=== PATIENT | female | born 1980 | race Caucasian/White ===

== ENCOUNTER 2016-10-27 18:48 | Emergency (ER) | payer OTHER ==
[~2016-10-27 18:48] MED LIST: ACETAMINOPHEN650 M3 PO; AMOXICILLIN PO; AMOXICILLIN500 M1 PO; BENTYL10 MG DOB; BENTYL10 MG PO; BUSPAR; BUSPAR PO; CLEOCIN PO; COLACE PO; COMPAZINE10 M1 PO; COUMADIN PO; CYMBALTA PO; EC-NAPROSYN500 MG PO; EFFEXOR PO; FLEXERIL10 M1 PO; FLEXERIL10 MG PO; GABAPENTIN300 MG PO; IBUPROFEN PO; KEPPRA500 M2 PO; LOPRESSOR PO; LORTAB 10-5001 EACH PO; LORTAB 5/500 TA1 TA1 PO; LOVENOX80 MG/0.8 INJ; MIRALAX255 GM PO; NEURONTIN PO; NICOTINE P1 PATCH .1 EXT; PERCOCET5/325 PO; PHENERGAN PO; POTASSIUM CHLO10 ME1 PO; PREDNISONE PO; PRENATAL VITAMI1 TA3 PO; PRILOSEC40 MG PO; PROZAC PO; REGLAN10 MG PO; ULTRAM PO; VICODIN 5/1 TAB 5/50 PO; VICODIN 5/500 T1 TAB PO; VOLTAREN50 MG PO
[2016-10-28] MEDS ORDERED: KEPPRA500 MG (11:47)
[2016-10-28] MEDS ORDERED: NEURONTIN (11:48)
== END 2016-10-27 19:26 | disposition home or self-care (01) ==
LOC: CFTX 18:48
DX: J02.9 Acute pharyngitis, unspecified (principal); H66.92 Otitis media, unspecified, left ear; K21.9 Gastro-esophageal reflux disease without esophagitis; F32.9 Major depressive disorder, single episode, unspecified; F41.9 Anxiety disorder, unspecified; Z87.442 Personal history of urinary calculi; F17.210 Nicotine dependence, cigarettes, uncomplicated; Z91.040 Latex allergy status
CPT/HCPCS: 87651; 99283

== ENCOUNTER 2016-10-28 12:11 | Emergency (ER) | payer OTHER ==
[~2016-10-28 12:11] MED LIST changes: +KEPPRA500 MG; +NEURONTIN
== END 2016-10-28 13:38 | disposition home or self-care (01) ==
LOC: SED 12:11
DX: K11.20 Sialoadenitis, unspecified (principal); G40.909 Epilepsy, unspecified, not intractable, without status epilepticus; F17.210 Nicotine dependence, cigarettes, uncomplicated; Z91.040 Latex allergy status
CPT/HCPCS: 87651; 99282

== ENCOUNTER 2016-11-01 21:34 | Emergency (ER) | payer OTHER | END 2016-11-02 16:19 | disposition home or self-care (01) | LOC: CED 21:34 | DX: H60.92 Unspecified otitis externa, left ear (principal); F11.23 Opioid dependence with withdrawal; K21.9 Gastro-esophageal reflux disease without esophagitis; Z90.49 Acquired absence of other specified parts of digestive tract; F17.200 Nicotine dependence, unspecified, uncomplicated; Z91.040 Latex allergy status | CPT/HCPCS: 96372; 99283; J2405; J2765 ==

== ENCOUNTER 2016-11-02 16:28 | Inpatient (IN) | payer OTHER ==
--- NOTE | ~2016-11-02 | PN ---
Unit #: [id number] #: [id number] Patient: SHAILA DAS [id number] [facility] [address] [place] [address] [id number] MR#: [id number] NAME: SHAILA DAS. ROOM: P254 Age: 36 Sex: F Admission Date: 11/02/2016 : 1980 Attending Physician: Manas Vides M.D. Admitting Physician: Manas Vidse M.D. Primary Care Physician: Jam Hernandez PROGRESS NOTES DATE OF SERVICE 11/04/2016 DISCUSSION Ms. Das is a 36-year-old white female who was seen today. Chart was reviewed and case was discussed with the staff. She reports persistent anxiety and was given Vistaril yesterday. She states she did not like that medication, and it had an opposite effect, and she wants medication to be adjusted and has been restless, anxious, and rather seclusive to herself. Meanwhile, no agitation or aggression has been noted. MENTAL STATUS EXAMINATION Young white female who is casually dressed with fair personal hygiene, appears to be in no acute distress or discomfort. She was awake and alert on interaction with intact orientation. Her mood is anxious with congruent affect. She denies any suicidal or ideation. Her insight and judgment remain slightly impaired. TREATMENT PLAN 1. We will continue her on her current medications and treatment protocol. We will monitor her response to the medications and make further adjustments as needed. 2. We will continue to follow up. Dictated by... Maricruz Robledo/suzie TD: 11/05/2016 06:55 JOB #: [id number] Unit #: [id number] #: [id number] Patient: SHAILA DAS PEAPATRICK PROGRESS NOTES Page 1 of 1 X Manas Vides MD PROGRESS NOTE
--- NOTE | ~2016-11-02 | PA ---
Unit #: [id number] #: [id number] Patient: SHAILA DAS [id number] [facility] [address] [place] [address] [id number] MR#: [id number] NAME: SHAILA DAS. ROOM: P254 Age: 36 Sex: F Admission Date: 11/02/2016 : 1980 Date of Assessment: 11/02/2016 Attending Physician: Manas Vides M.D. Admitting Physician: Manas Vides M.D. Primary Care Physician: Carol Juárez A.P.R.N. PSYCHIATRIC ASSESSMENT DATE OF SERVICE 11/02/2016. IDENTIFYING DATA Ms. Das is a 36-year-old white female, who is a resident of [place], [place], and was transferred to us from [facility]. CHIEF COMPLAINT "I'm withdrawing from heroin." HISTORY OF PRESENT ILLNESS Ms. Das is a 36-year-old white female, who was transferred to us from [facility], where she was taken and stated that she has been withdrawing from heroin and has been using 1 g a day of IV heroin, the last use yesterday, reports significant withdrawal symptoms and had a COWS score of 19, upon presentation indicating significant withdrawal symptoms. Collateral from the ER nurse at [facility] stated that the patient came to the ER complaining of ear pain and heroin withdrawals and that she has been using a gram of IV heroin on daily basis and last use was about 24 hours ago. She was vomiting and was having nausea and was treated with Zofran, clonidine, Motrin, and Reglan and she was medically cleared and then was transferred to us. Upon evaluation by me, the patient was seen to be anxious, withdrawn, unkempt, disheveled, and does endorse significant depression with anxiety, irritability, restlessness, poor energy level, and significant consequences because of her addiction and inability to function and take care of herself; however, she denies any suicidal or homicidal ideation. SUBSTANCE ABUSE HISTORY The patient reports history of experimentation with cocaine and cannabis and opioids and amphetamines and currently opioids, particularly IV heroin has been her drug of choice as she reports that she has been using a gram of IV heroin a day and has used cocaine recently as couple of weeks ago. PAST PSYCHIATRIC HISTORY The patient has had history of inpatient chemical dependency treatment at [facility] and review of the medical records indicate that currently she is not active in any treatment program, is not seeing a psychiatrist, not taking any psychotropic medications. PAST MEDICAL HISTORY The patient's medical history is significant for seizure disorder. Unit #: [id number] #: [id number] Patient: SHAILA DAS ALLERGIES Latex. PERSONAL AND SOCIAL HISTORY A 36-year-old white female, who reports that she is single, unemployed, and lives at home with her son and has fairly decent social support system. MENTAL STATUS EXAMINATION Young white female who was casually dressed with fair personal hygiene, appears to be in no acute distress or discomfort. She was awake and alert on interaction with intact orientation to time, place, and person. Her mood was anxious and depressed with a congruent affect. Her speech was slow and restricted in content. Her thought processes were disorganized with some looseness of associations. The patient denies any suicidal or homicidal ideations, and also denies any auditory or visual hallucinations. Her insight and judgment remain significantly impaired. DIAGNOSTIC IMPRESSION Psychiatric: Opioid dependence, moderate and acute withdrawals; opioid-induced mood disorder. Medical: Seizure disorder. Stressors: Moderate psychosocial stressors. TREATMENT PLAN 1. The patient has presented with history of substance abuse and mood disorder, and has been decompensating and will need inpatient hospitalization for detoxification, safety, and stabilization. We will start her on detox protocol. We will closely monitor. 2. Supportive therapy was provided to the patient. ESTIMATED LENGTH OF STAY 5 to 7 days. ABILITY TO HELP SELF Limited. WILLINGNESS TO HELP SELF The patient appears to be willing to help self. STRENGTHS 1. Communicative. 2. Cooperative. PROBLEMS 1. Chronic dysphoric symptoms. 2. Chronic chemical dependency. 3. Poor social support system. DISCHARGE CRITERIA This will be contingent upon the patient's ability to show resolution of her depression and anxiety as well as her ability to go through detox without having any significant withdrawal symptoms. Dictated by... Manas Vides M.D. Unit #: [id number] #: [id number] Patient: SHAILA DAS IAA/modl TD: 11/04/2016 00:03 JOB #: [id number] PSYCHIATRIC ASSESSMENT Page 1 of 1 X Manas Vides MD PSYCHIATRIC ASSESSMENT
--- NOTE | ~2016-11-02 | PN ---
Unit #: [id number] #: [id number] Patient: SHAILA DAS [id number] [facility] [address] [place] [address] [id number] I MR#: [id number] NAME: SHAILA DAS. ROOM: P254 Age: 36 Sex: F Admission Date: 11/02/2016 : 1980 Attending Physician: Manas Vides M.D. Admitting Physician: Manas Vides M.D. Primary Care Physician: Jam HernandezCE PROGRESS NOTES DATE OF SERVICE 11/06/2016 DISCUSSION Ms. Das is a 36-year-old white female who was seen today. Chart was reviewed and case was discussed with the staff. She was seen to be anxious, withdrawn, depressed, and rather seclusive to herself and has been voicing persistent depression and suicidal thoughts and feelings of hopelessness. Meanwhile, she has been coming to therapy groups and has been participating. MENTAL STATUS EXAMINATION Young white female who is casually dressed with fair personal hygiene and appears to be in no acute distress or discomfort. The patient was awake and alert on interaction with intact orientation. Her mood is anxious and depressed with congruent affect. Speech is slow and goal-directed. She denies any suicidal or homicidal ideations and also denies any auditory or visual hallucinations. Her insight and judgment remain slightly impaired. TREATMENT PLAN 1. We will continue her on her current medications and treatment protocol. We will monitor her response to the medications and make further adjustments as needed. 2. We will continue to follow up. Dictated by... Maricruz Robledo/bzg TD: 11/07/2016 07:13 JOB #: [id number] Unit #: [id number] #: [id number] Patient: SHAILA DAS PEAPATRICK PROGRESS NOTES Page 1 of 1 X Manas Vides MD PROGRESS NOTE
--- NOTE | ~2016-11-02 | HP ---
Unit #: [id number] #: [id number] Patient: SHAILA DAS [id number] [place] [address] [id number] I MR#: [id number] NAME: SHAILA DAS. ROOM: P254 Age: 36 Sex: F Admission Date: 11/02/2016 : 1980 Attending Physician: Manas Vides M.D. Admitting Physician: Manas Vides M.D. Primary Care Physician: Jose Cruz HernandezRJenniffer HISTORY AND PHYSICAL HISTORY OF PRESENT ILLNESS Shaila is a 36 year old admitted to [address] [place] [address] because of her drug use. She shoots heroin. PAST MEDICAL HISTORY 1. Long history of opioid abuse to include IV heroin 2. FLACO 3. History of kidney stones 4. GERD 5. History of SVT 6. Seizure disorder PAST SURGICAL HISTORY 1. section x1 2. Tubal ligation 3. Colonoscopy with polypectomy, 2009 ALLERGIES Latex SOCIAL HISTORY Smokes one pack per day. Denies alcohol. Admits to a long history of opioid abuse to include IV heroin. FAMILY HISTORY Medically noncontributory. REVIEW OF SYSTEMS CONSTITUTIONAL: No fever or chills. HEENT: Denies any sore throat, ear pain or runny nose. CARDIOVASCULAR: Denies chest pain, irregular heart rhythm or palpitations. CHEST: Denies shortness of breath or cough. No hemoptysis. GASTROINTESTINAL: Denies nausea, vomiting, diarrhea or chronic constipation. ENDOCRINE: Denies history of increased thirst or urination. No recent significant weight loss or gain. GENITOURINARY: Denies dysuria, frequency, or hematuria. SKIN: Denies any rashes. HEMATOLOGIC: Denies history of increased bleeding or bruising. MUSCULOSKELETAL: Denies any hot, swollen joints. No generalized muscle pain. NEUROLOGIC: Denies problems with vision or speech. No frequent, severe Unit #: [id number] #: [id number] Patient: SHAILA DAS headaches. No numbness, tingling or weakness in any extremities. Denies loss of bladder or bowel control. CURRENT MEDICATIONS 1. Detox protocol 2. Keppra 500 mg b.i.d. 3. Tylenol #3 q.4 h. p.r.n. 4. Cipro HC b.i.d. PHYSICAL EXAMINATION GENERAL: Alert, well-nourished, in no apparent distress. VITAL SIGNS: Blood pressure 115/56, heart rate 80, respirations 16, temperature 98.6. WEIGHT: 140 pounds. HEIGHT: 5'6". SKIN: Warm and dry without rash or lesion. HEENT: Normocephalic. TMs not viewed. Oral and nasal passages clear. Conjunctivae clear. Pupils equal, round and reactive to light and accommodation. Extraocular movements intact. NECK: Supple without lymphadenopathy or thyromegaly. HEART: Regular rate and rhythm without murmur. LUNGS: Clear. ABDOMEN: Soft, nontender. : Not done. EXTREMITIES: No evidence of cyanosis, clubbing or edema. Moves all extremities without focal deficit. NEUROLOGICAL: Grossly within normal limits. Cranial Nerves: II: Visual dunham are intact. III, IV AND : Extraocular movements are intact. Pupils are equal, round and reactive to light. V: Facial sensation is grossly normal. VII: Facial movements and expression are normal. VIII: Auditory acuity grossly intact. IX, X: Uvula is midline. Phonation is normal. XI: Patient shrugs shoulders and turns head normally. XII: Tongue protrudes in the midline. Sensory and Motor Function: Sensory and motor sensation is grossly normal. Motor: moves all extremities well. Coordination: Gait is normal. Deep Tendon Reflexes: Intact. IMPRESSION Psychiatric admission RECOMMENDATIONS PSYCHIATRIC: Per psychiatrist. MEDICAL: I see no contraindications to participating in facility's activities. MEDICAL PROGNOSIS Good. MEDICAL CONDITION Stable. Dictated by... Unit #: [id number] #: [id number] Patient: SHAILA DAS Sophia Travis P.A.-C. for Maricruz [place]/richard TD: 11/03/2016 19:36 JOB #: [id number] HISTORY AND PHYSICAL X Sophia Travis HISTORY AND PHYSICAL
--- NOTE | ~2016-11-02 | DS ---
Unit #: [id number] #: [id number] Patient: SHAILA DAS [id number] [facility] [address] [place] [address] [id number] I MR#: [id number] NAME: SHAILA DAS. ROOM: P254 Age: 36 Sex: F Admission Date: 11/02/2016 : 1980 Discharge Date: 11/08/2016 Attending Physician: Manas Vides M.D. Primary Care Physician: Carol Juárez A.P.R.N. DISCHARGE SUMMARY IDENTIFYING DATA Ms. Das is a 36-year-old white female, who is a resident of [place], [place], and was transferred to us from [facility]. DISCHARGE DIAGNOSES Psychiatric: Opioid dependence, moderate, in acute withdrawals and opioid-induced mood disorder. Medical: Seizure disorder. Stressors: Moderate psychosocial stressors. HISTORY OF PRESENT ILLNESS Please see initial psychiatric evaluation for details. PAST PSYCHIATRIC HISTORY Please see initial psychiatric evaluation for details. PAST MEDICAL HISTORY Please see initial psychiatric evaluation for details. HOSPITAL COURSE The patient was [facility] and was oriented to the hospital environment. Routine p.r.n. medications were initiated, and she was started back on her home medications. However, she was initiated on the opioid detox protocol, but she was constantly talking about anxiety and restlessness and medications were adjusted quite regularly and she was also seen to be exhibiting some med-seeking behavior; however, she was able to show a therapeutic response to the medications and was willing to come to the treatment on an outpatient basis and was denying any suicidal ideations, intent, or plan and was not seen to be a danger to self or anyone else, and as such, it was decided that she will be discharged home and will continue treatment on an outpatient basis. DISCHARGE MEDICATIONS Zoloft 50 mg in the morning for depression, Seroquel 100 mg at bedtime for mood disorder, and BuSpar 10 mg t.i.d. for anxiety. DISCHARGE CONDITION Stable. PROGNOSIS Fair. Unit #: [id number] #: [id number] Patient: SHAILA DAS Dictated by... Manas Vides M.D. IAA/modl TD: 11/08/2016 19:22 JOB #: [id number] DISCHARGE SUMMARY Page 1 of 1 X Manas Vides MD DISCHARGE SUMMARY
--- NOTE | ~2016-11-02 | PN ---
Unit #: [id number] #: [id number] Patient: SHAILA DAS [id number] [facility] [address] [place] [address] [id number] I MR#: [id number] NAME: SHAILA DAS. ROOM: P254 Age: 36 Sex: F Admission Date: 11/02/2016 : 1980 Attending Physician: Manas Vides M.D. Admitting Physician: Manas Vides M.D. Primary Care Physician: Jam Hernandez PROGRESS NOTES DATE 11/05/2016 DISCUSSION Ms. Das is a 36-year-old white female who was seen today and chart was reviewed and case was discussed with the staff. She has been anxious, withdrawn and rather seclusive to herself. Meanwhile, she has been cooperative with treatment recommendations as she has been taking the medications and tolerating them fairly well with no reported side effects. MENTAL STATUS EXAMINATION Young white female who was casually dressed with fair personal hygiene, appears to be in no acute distress or discomfort. She was awake and alert on interaction with intact orientation. Her mood was anxious and depressed with congruent affect. She denies any suicidal or homicidal ideations. Also, denies any auditory or visual hallucinations. Her insight and judgement remains slightly impaired. TREATMENT PLAN 1. We will continue her on her current medications and treatment protocol. We will monitor her response to the medication and make further adjustments as needed. 2. We will continue to follow up. Dictated by... Maricruz Robledo/richard TD: 11/06/2016 01:49 JOB #: [id number] Unit #: [id number] #: [id number] Patient: SHAILA DAS PROGRESS NOTES Page 1 of 1 X Manas Vides MD X PROGRESS NOTE
--- NOTE | ~2016-11-02 | PN ---
Unit #: [id number] #: [id number] Patient: SHAILA DAS [id number] [facility] [address] [place] [address] [id number] I MR#: [id number] NAME: SHAILA DAS. ROOM: P254 Age: 36 Sex: F Admission Date: 11/02/2016 : 1980 Attending Physician: Manas Vides M.D. Admitting Physician: Manas Vides M.D. Primary Care Physician: Jam Hernandez PROGRESS NOTES DATE OF SERVICE: 11/07/2016 SUBJECTIVE Ms. Das is a 36-year-old white female, who was seen today and chart was reviewed and the case was discussed with the staff. She was laying in her bed and once again stated not feeling much better and complaining of persistent anxiety, depression, and sleep disturbance. Meanwhile, she has been taking the medications and tolerating them fairly well with no reported side effects. MENTAL STATUS EXAMINATION Young white female, who was casually dressed with fair personal hygiene, appears to be in no acute distress or discomfort. She was awake and alert on interaction with intact orientation. Her mood was anxious with a congruent affect. Her speech was slow and goal directed. She denies any suicidal or homicidal ideations. Her insight and judgment remain slightly impaired. TREATMENT PLAN 1. We will continue her on her current medications and treatment protocol. We will monitor her response to the medications and make further adjustments as needed. 2. We will continue to follow up. Dictated by... Maricruz Robledo/arlette TD: 11/07/2016 18:56 JOB #: [id number] Unit #: [id number] #: [id number] Patient: SHAILA DAS PEAPATRICK PROGRESS NOTES Page 1 of 1 X Manas Vides MD PROGRESS NOTE
--- NOTE | ~2016-11-02 | PN ---
Unit #: [id number] #: [id number] Patient: SHAILA DAS [id number] [facility] [address] [place] [address] [id number] MR#: [id number] NAME: SHAILA DAS. ROOM: P254 Age: 36 Sex: F Admission Date: 11/02/2016 : 1980 Attending Physician: Manas Vides M.D. Admitting Physician: Manas Vides M.D. Primary Care Physician: Jam Hernandez PROGRESS NOTES DATE November 03, 2016 DISCUSSION Ms. Das is a 36-year-old white female, who was seen today and chart was reviewed and the case was discussed with the staff. The patient has been anxious, withdrawn, but has not shown any agitation or irritability and has been cooperative with the treatment recommendations and she has been taking the medications and tolerating them fairly well with no reported side effects. MENTAL STATUS EXAMINATION Young white female, who was casually dressed with fair personal hygiene and appears to be in no acute distress or discomfort. She was awake and alert with impaired attention and concentration. Her mood was anxious with a congruent affect. Her speech is slow and restricted in content. Her thought processes are disorganized with some looseness of associations. Her insight and judgment remain significantly impaired. TREATMENT PLAN 1. We will continue her on her current medications and treatment protocol, and will monitor her response to the medications, and make further adjustments as needed. 2. We will continue to followup. Dictated by... Maricruz Robledo/priscilla TD: 11/04/2016 12:51 JOB #: [id number] Unit #: [id number] #: [id number] Patient: SHAILA DAS PROGRESS NOTES Page 1 of 1 X Manas Vides MD PROGRESS NOTE
[2016-11-03 09:25] LABS: BASOPHIL% 0.5 % (0-2.5); EOSINOPHIL# 0.1 X10e3 (0-0.7); EOSINOPHIL% 1.2 % (0.0-7.0); HEMATOCRIT 37.2 % (35.0-45.0); HEMOGLOBIN 12.1 gm/dL (12.0-16.0); LYMPHOCYTE# 2.4 X10e3 (1.0-3.5); LYMPHOCYTE% 37.5 % (17.0-45.0); MEAN CELL VOLUME 84.3 FL (83-96); MEAN CORPUSCULAR HEMOGLOBIN 27.5 PG (28-34); MEAN CORPUSCULAR HGB CONC 32.6 g/dL (30-36); MEAN PLATELET VOLUME 9.1 FL (6.5-11.5); MONOCYTE# 0.7 X10e3 (0-1.0); MONOCYTE% 10.6 % (3.0-12.0); NEUTROPHIL# 3.2 X10e3 (1.5-7.1); NEUTROPHIL% 50.2 % (40-75); PLATELET COUNT 205 X10e3 (140-420); RED BLOOD COUNT 4.41 X10e (3.90-5.30); RED CELL DISTRIBUTION WIDTH 17.6 % (11.0-15.5); WHITE BLOOD COUNT 6.4 X10e3 (4.0-10.5)
[2016-11-03 09:29] LABS: DIFF IND NO
[2016-11-03 09:53] LABS: THYROID STIMULATING HORMONE 0.08 uIU/ml (0.34-5.60)
[2016-11-03 09:59] LABS: FREE THYROXIN (T4) 0.92 ng/dL (0.58-1.64)
[2016-11-03 10:08] LABS: ALBUMIN SERUM 3.1 g/dL (3.5-5.0); ALKALINE PHOSPHATASE 234 U/L (32-92); ALT (SGPT) 327 U/L (10-40); AST (SGOT) 833 U/L (10-42); BILIRUBIN,TOTAL 1.2 mg/dL (0.2-2.0); BLOOD UREA NITROGEN 8 mg/dL (9-23); BUN/CREATININE RATIO 11.42; CALCIUM SERUM 8.3 mg/dL (8.4-10.2); CARBON DIOXIDE 26 mmol/L (22-31); CHLORIDE 109 mmol/L (100-111); CREATININE SERUM 0.7 mg/dL (0.6-1.4); GLOM FILT RATE Estimated ABOVE60 mL/min (>60); GLUCOSE FASTING 100 mg/dL (70-110); POTASSIUM 3.7 mmol/L (3.5-5.1); PROTEIN TOTAL SERUM 7.1 g/dL (6.0-8.3); SODIUM 138 mmol/L (135-145)
[2016-11-06 09:48] LABS: URINE APPEARANCE CLEAR; URINE BILIRUBIN NEG (NEG); URINE BLOOD NEG (NEG); URINE COLOR YELLOW; URINE GLUCOSE NEG (NEG); URINE KETONE NEG (NEG); URINE LEUKOCYTE ESTERASE TRACE (NEG); URINE NITRATE NEG (NEG); URINE PROTEIN NEG (NEG); URINE SPECIFIC GRAVITY 1.002 (1.003-1.035); URINE UROBILINOGEN 0.2 MG/DL (NEG)
[2016-11-06 09:51] LABS: URBCS1 AUWI 0-2 /[HPF] (0-2); URINE BACTERIA AUWI 1+ (NEGATIVE); URINE SQUAMOUS EPITHELIAL CELL OCC /[HPF]
[2016-11-06 10:56] LABS: AMPHETAMINE NEG (NEG); BARBITURATES NEG (NEG); BENZODIAZEPINES NEG (NEG); COCAINE NEG (NEG); MARIJUANA NEG (NEG); OPIATES POS (NEG); TRICYCLIC ANTIDEPRESSANTS NEG (NEG); U METHADONE NEG (NEG)
== END 2016-11-08 14:34 | disposition home or self-care (01) | DRG 897 ==
LOC: POF 16:28 → P2L 19:27
PROVIDERS: Psychiatry & Neurology Psychiatry
PROC: HZ2ZZZZ Detoxification Services for Substance Abuse Treatment (ICD-10-PCS; principal; 2016-11-02)
DX: F11.23 Opioid dependence with withdrawal (principal); F11.24 Opioid dependence with opioid-induced mood disorder; G40.909 Epilepsy, unspecified, not intractable, without status epilepticus; G47.33 Obstructive sleep apnea (adult) (pediatric); K21.9 Gastro-esophageal reflux disease without esophagitis; Z87.442 Personal history of urinary calculi; Z98.51 Tubal ligation status; Z91.040 Latex allergy status; F17.210 Nicotine dependence, cigarettes, uncomplicated
CPT/HCPCS: 80053; 80307; 81003; 84439; 84443; 85025; 86592

== ENCOUNTER 2016-11-26 07:29 | Emergency (ER) | payer OTHER ==
--- NOTE | ~2016-11-26 | CT99 ---
[facility] A Service of [facility] & [facility] RADIOLOGY TEXT RESULTS PATIENT: SHAILA DAS LOCATION: SED : [birth year] UNIT #: [id number] AGE: [address]: Thomas Romero MD SEX: F ORDER DR: [id number] [address] [address] [id number] MR#: [id number] Acc #: [id number] NAME: SHAILA DAS : 1980 SEX: F STUDY DATE/TIME: 11/26/2016 8:09 UNIT: SED ROOM: STUDY DESCRIPTION: CT Maxillofacial Area W Cont Attending Physician: Thomas Romero M.D. Ordering Physician: Thomas oRmero M.D. Primary Care Physician: Carol Juárez A.P.R.N. MEDICAL IMAGING REPORT This report is preliminary unless electronic signature is present. EXAM CT face with contrast dated 11/26/2016 HISTORY An 6-year-old female with swelling behind the ears which started 2 days ago. Multiple ear infections. Symptoms worse on the left. COMPARISON CT face with contrast 09/17/2015. PROCEDURE 2 mL axial images through the face after IV contrast administration. Coronal reformed images were obtained. FINDINGS Skin and soft tissue thickening at the anterior posterior margins of the external auditory canals appears more prominent or increased when compared to a CT face with contrast from 10/25/2013, raising the possibility of external otitis, this should be correlated with the direct physical examination. Couple of mildly prominent enhancing lymph nodes are seen in the retroareolar regions, one on the left measuring 8 mm in length, another index node on the right measuring 9 mm in length. No well-defined drainable fluid collection or abscess is seen. No definite fluid collection is seen within the middle ear cavity. Mastoid air cells are clear. There is moderate left sphenoid sinus mucosal thickening and left posterior ethmoid sinus mucosal thickening. Mastoid air cells appear clear. No acute osseous abnormalities are identified. Globes appear unremarkable. Major vascular structures, to the extent that can be visualized on this examination, appear opacified and patent. Imaged portion of the brain parenchyma appears unremarkable. IMPRESSION STS. [facility] A Service of [facility] & [facility] RADIOLOGY TEXT RESULTS PATIENT: SHAILA DAS LOCATION: SED : 76 UNIT #: [id number] AGE: [address]: Thomas Romero MD SEX: F ORDER DR: 1. Abnormal skin thickening and subcutaneous soft tissue thickening in the region of the external auditory canals, and correlation for external otitis would be recommended. 2. No definite drainable fluid collection or abscess is seen on either side. The visualized middle ear cavities demonstrate no definite fluid collections. 3. Mastoid air cells are patent. 4. Mildly prominent bilateral retropectoral lymph nodes measure about 8-9 mm, potentially accounting for the patient's complaint of swelling. No drainable fluid collection or abscess is seen in these locations. 5. Left sphenoid sinus moderate mucosal thickening. Correlate for sinusitis symptoms. Dictated by... Cesia Gonzalez M.D. THIS IS AN ELECTRONICALLY VERIFIED REPORT Cesia Gonzalez M.D. at 11/27/2016 7:03 AM SHAMAR/manuel TD: 11/26/2016 11:45 JOB #: [id number] MEDICAL IMAGING REPORT Page 1 of 1
[2016-11-26 08:05] LABS: BASOPHIL% 0.4 % (0-2.5); DIFF IND NO; EOSINOPHIL# 0.3 X10e3 (0-0.7); HEMATOCRIT 35.9 % (35.0-45.0); HEMOGLOBIN 11.8 gm/dL (12.0-16.0); LYMPHOCYTE# 1.2 X10e3 (1.0-3.5); LYMPHOCYTE% 24.3 % (17.0-45.0); MEAN CELL VOLUME 86.3 FL (83-96); MEAN CORPUSCULAR HEMOGLOBIN 28.4 PG (28-34); MEAN CORPUSCULAR HGB CONC 32.9 g/dL (30-36); MEAN PLATELET VOLUME 7.7 FL (6.5-11.5); MONOCYTE# 0.5 X10e3 (0-1.0); MONOCYTE% 9.6 % (3.0-12.0); NEUTROPHIL# 2.9 X10e3 (1.5-7.1); NEUTROPHIL% 59.7 % (40-75); PLATELET COUNT 180 X10e3 (140-420); RED BLOOD COUNT 4.16 X10e (3.90-5.30); RED CELL DISTRIBUTION WIDTH 18.2 % (11.0-15.5); WHITE BLOOD COUNT 4.8 X10e3 (4.0-10.5)
[2016-11-26 08:18] LABS: BUN/CREATININE RATIO 11.42; CALCIUM SERUM 8.2 mg/dL (8.4-10.2); CREATININE SERUM 0.7 mg/dL (0.6-1.4); GLOM FILT RATE Estimated 109.9 mL/min (>60)
[2016-11-26 08:20] LABS: POTASSIUM 2.8 mmol/L (3.5-5.1)
== END 2016-11-26 10:45 | disposition home or self-care (01) ==
LOC: SED 07:29
PROVIDERS: Emergency Medicine
DX: H60.313 Diffuse otitis externa, bilateral (principal); H60.13 Cellulitis of external ear, bilateral; E87.6 Hypokalemia; K21.9 Gastro-esophageal reflux disease without esophagitis; F17.200 Nicotine dependence, unspecified, uncomplicated
CPT/HCPCS: 36415; 70487; 80048; 85025; 96365; 96375; 99284; J1885; J2405; J2543; J2765; Q9967

== ENCOUNTER 2017-01-12 02:47 | Emergency (ER) | payer OTHER | END 2017-01-12 03:43 | disposition home or self-care (01) | LOC: SED 02:47 | DX: R21 Rash and other nonspecific skin eruption (principal); F41.9 Anxiety disorder, unspecified; K21.9 Gastro-esophageal reflux disease without esophagitis; F17.200 Nicotine dependence, unspecified, uncomplicated; Z90.49 Acquired absence of other specified parts of digestive tract; Z98.51 Tubal ligation status; Z91.040 Latex allergy status | CPT/HCPCS: 99283 ==

== ENCOUNTER 2017-01-18 08:51 | Emergency (ER) | payer OTHER ==
[2017-01-18] MEDS ORDERED: KEFLEX (09:01)
[2017-01-18] MEDS ORDERED: [UNRECOGNIZED DRUG - OTHER] (09:02)
== END 2017-01-18 09:40 | disposition home or self-care (01) ==
LOC: SED 08:51
DX: R20.2 Paresthesia of skin (principal); F17.210 Nicotine dependence, cigarettes, uncomplicated; Z91.040 Latex allergy status
CPT/HCPCS: 99283